=== PATIENT | male | born 1980 | race Caucasian/White ===

== ENCOUNTER 2023-03-30 10:43 | Emergency (ER) | payer SELFPAY ==
--- NOTE | 2023-03-30 10:54 | ED_ITS ---
HPI - General Adult General Chief complaint: Skin/Abscess/Foreign Body Stated complaint: POISON IV Time Seen by Provider: 03/30/23 10:54 History of Present Illness HPI narrative: Patient presents emergency department complaining of left eye swelling. He states in the last 2 weeks he was out weeding and noted a rash to his lower legs. He then noticed that in his bilateral upper extremities and woke up this morning with swelling to his left thigh. Denies any headache, blurred vision, s peech difficulties. He denies any trauma to his eye. He states the rash is itchy he has applied calamine lotion without any relief. Does not have a primary care doctor. He denies any throat swelling, difficulty swallowing. Denies any chest pain, shortness of breath. Related Data Previous Rx's Medication Instructions Recorded diphenhydramine HCl 25 mg capsule 25 mg PO Q8H PRN allergy symptoms 03/30/23 (Benadryl) #20 caps famotidine 20 mg tablet (Pepcid) 20 mg PO DAILY #10 tabs 03/30/23 prednisone 10 mg tablets in a dose 10 mg PO DAILY #48 ea 03/30/23 pack prednisone 10 mg tablets in a dose 10 mg PO DAILY 18 days #18 ea 03/30/23 pack Allergies Allergy/AdvReac Type Severity Reaction Status Date / Time No Known Drug Allergies Allergy Verified 03/30/23 10:56 Review of Systems ROS Status of ROS 10 or more systems reviewed and unremarkable except as noted in history and below [facility] Social History Smoking status: Never smoker Exam Narrative Exam Narrative: Nurses notes and vital signs reviewed and patient is not hypoxic. General: Nontoxic, Well-appearing and in no apparent distress. Skin: Warm, dry, no pallor noted. Linear vesicles to bilateral forearms and ankles. Some excoriation noted. Consistent with poison samira dermatitis. Neck: Supple, non-tender. Eye: Pupils are equal, round and EOMI. No scleral icterus.Left mild periorbital edema, no erythema or signs of cellulitis. Ears, Nose, Mouth, and Throat: TM clear, no posterior oropharynx erythema or nasal mucosal hypertrophy, uvula is mid-line Oral mucosa is moist Cardiovascular: Regular Rate and Rhythm without murmur, gallop or rub. Respiratory: No accessory muscle use or respiratory distress. Lungs are clear to auscultation, no wheezing, rales or rhonchi Chest Wall: no tenderness Back: No midline thoracic or lumbar vertebral tenderness. No CVA tenderness Musculoskeletal: normal ROM, no calf or popliteal tenderness, no lower extremity edema/swelling GI: Abdomen is soft, non-distended. Normal bowel sounds. No masses appreciated. No tenderness to palpation. No rebound, guarding, or rigidity noted. Neurological: A&O x4. No cranial nerve dysfunction observed. No truncal ataxia. Moves all extremities. Sensation intact. Psychiatric: Cooperative and interactive. Normal mood and affect. Constitutional Vital Signs, click to edit/add: Last Vital Signs Temp 98.6 F 03/30/23 10:56 Pulse 67 03/30/23 10:56 Resp 16 03/30/23 10:56 BP 154/99 H 03/30/23 10:56 Pulse Ox 97 03/30/23 10:56 O2 Del Method Room Air 03/30/23 10:56 Course Vital Signs Vital signs: Vital Signs Temperature 98.6 F 03/30/23 10:56 Pulse Rate 67 03/30/23 10:56 Respiratory Rate 16 03/30/23 10:56 Blood Pressure 154/99 H 03/30/23 10:56 Pulse Oximetry 97 03/30/23 10:56 Oxygen Delivery Method Room Air 03/30/23 10:56 Temperature 98.6 F 03/30/23 10:56 Pulse Rate 67 03/30/23 10:56 Respiratory Rate 16 03/30/23 10:56 Blood Pressure 154/99 H 03/30/23 10:56 Pulse Oximetry 97 03/30/23 10:56 Oxygen Delivery Method Room Air 03/30/23 10:56 Medical Decision Making [facility] Narrative Medical decision making narrative: Shunt history and physical are consistent with contact dermatitis.Patient is advised to wash away the wheels with fluids and IV so from the pharmacy. He'll be given a prescription for prednisone, Benadryl, and Pepcid. At this time the patient is without objective evidence of an acute process requiring hospitalization or inpatient management. The patient has remained hemodynamically stable. No additional indication for emergent studies at this time. I answered all questions. Discussed discharge instructions including standard anticipatory guidance and what should prompt a return to the emergency department, including if they get worse are not getting better or develops any new or concerning symptoms. I've given them specific time frame in which to follow-up, and who to follow-up with. The patient demonstrates understanding. Patient is nontoxic and stable for discharge with outpatient follow-up. This note was created with the assistance of a speech recognition program. Although the intention is to generate documents that actually reflects the content of the visit, no guarantees can be provided that every mistake has been identified and corrected by editing. Discharge Plan Discharge Chief Complaint: Skin/Abscess/Foreign Body Clinical Impression: Contact dermatitis Patient Disposition: Home, Self-Care Time of Disposition Decision: 11:22 Condition: Good Mode of Transportation: Private Vehicle Prescriptions / Home Meds: New prednisone 10 mg tablets,dose pack 10 mg PO DAILY 18 Days Qty: 18 0RF Rx Instructions: [id number], [id number], 30mgx3 days, 20mg x3days, 10mg x3 days, 5mg x3 days diphenhydramine HCl [Benadryl] 25 mg capsule 25 mg PO Q8H PRN (Reason: allergy symptoms) Qty: 20 0RF famotidine [Pepcid] 20 mg tablet 20 mg PO DAILY Qty: 10 0RF prednisone 10 mg tablets,dose pack 10 mg PO DAILY Qty: 48 0RF Rx Instructions: [id number], [id number], [id number], [id number] Instructions: Contact Dermatitis (ED), Poison Samira (ED) Stand Alone Forms: Portal Instructions Referrals: HUNG POOLE APRN [Physician] - 1 week Physician,Non-Staff, MD [Primary Care Provider] - 1 week Discharge Date/Time: 03/30/23 11:48
[2023-03-30 10:56] VITALS: BP 154/99; PULSE 67; RESP 16; TEMP 37; O2SAT 97; BMI 25.8
== END 2023-03-30 11:48 | disposition home or self-care (01) ==
PROVIDERS: Emergency Provider Emergency Medicine
DX: L25.9 Unspecified contact dermatitis, unspecified cause (principal)
CPT/HCPCS: 99283